=== PATIENT | male | born 1965 | race American Indian/Alaskan Native ===

== ENCOUNTER 2018-12-28 07:55 | Emergency (ER) | payer OTHER ==
[2018-12-28 08:04] VITALS: BMI 26.4
--- NOTE | 2018-12-28 08:32 | ED PDOC ---
Arrival/HPI - General Historian: Patient EM Caveat: Altered Mental Status - History of Present Illness Narrative History of Present Illness (Text): 12/28/18 08:20 CC: AMS brought in by EMS sleeping on bench HPI: 53 yo male w/ unknown PMH BIBA to ED for AMS after found sleeping on bench. Patient AAOx 1 at best. Unknown baseline mental status. As per EMS, patient responds incoherently to most questioning however if continuously prompted patient is able to answer questions at times. States he was in [facility] ED where they told him he would need his right foot amputated. This frightened the patient so he left the hospital. Limited ROS 2/2 patient AMS. Spoke with ED physician, Dr. Perkins, at length who informed me of patient's psych history of caridad izophrenia. Has had multiple admissions at [facility] for AMS. Was placed in LTC facility at one point due to being unable to take care of himself. Was seen at [facility] on 12/25 and discharged, no vascular issues at that time were appreciated. Dr. Perkins did mention that he noted a stage 3 foot ulcer that was superficial. Time/Duration: 4-6 hours Symptom Onset: Gradual Symptom Course: Unchanged <Jet Mondragon - Last Filed: 12/28/18 13:25> <Judy Sherwood - Last Filed: 12/28/18 13:37> - General Chief Complaint: Wound Check Time Seen by Provider: 12/28/18 07:58 Past Medical History - Provider Review Nursing Documentation Reviewed: Yes <Jet Mondragon - Last Filed: 12/28/18 13:25> Family/Social History - Physician Review Nursing Documentation Reviewed: Yes Family/Social History: Unknown Family HX <Jet Mondragon - Last Filed: 12/28/18 13:25> Allergies/Home Meds <Jet Mondragon - Last Filed: 12/28/18 13:25> <Judy Sherwood - Last Filed: 12/28/18 13:37> Allergies/Adverse Reactions: Allergies No Known Allergies Allergy (Verified 12/28/18 08:04) Home Medications: Home Meds Medication Instructions Recorded Confirmed Haloperidol [Haldol] 5 mg PO PRN PRN 12/28/18 12/28/18 Review of Systems - Review of Systems Systems not reviewed;Unavailable: Altered Mental Status <Jet Mondragon - Last Filed: 12/28/18 13:25> Physical Exam - Systems Exam Head: Present: Atraumatic, Normocephalic Pupils: Present: PERRL. No: Sluggish, Non-Reactive Extroacular Muscles: Present: EOMI. No: Gaze Palsy Conjunctiva: Present: Normal, Other (left eye blindness) Mouth: Present: Dry. No: Moist Mucous Membranes Neck: Present: Normal Range of Motion. No: Meningeal Signs, JVD Respiratory/Chest: Present: Clear to Auscultation, Good Air Exchange. No: Respiratory Distress, Accessory Muscle Use Cardiovascular: Present: Normal S1, S2, Bradycardic Abdomen: Present: Normal Bowel Sounds. No: Tenderness, Distention, Peritoneal Signs Upper Extremity: Present: Normal Inspection, Other (dry scaly skin ). No: Cyanosis, Edema Lower Extremity: Present: Normal Inspection, NORMAL PULSES, Normal ROM, Other (2 cm by 2 cm ulcer superficial on right lower extremity above medial malleoulus, dry scaling cracked skin). No: Edema, CALF TENDERNESS, Cyanosis Neurological: Present: GCS=15, CN II-XII Intact, Speech Normal Skin: Present: Warm, Dry, Normal Color, Other (dry skin in upper and lower extremities). No: Rashes Psychiatric: Present: Alert, Oriented x 3. No: Normal Insight, Normal Concentration <Jet Mondragon - Last Filed: 12/28/18 13:25> Vital Signs Temp Pulse Resp BP Pulse Ox 12/28/18 11:18 45 L 18 114/50 L 99 12/28/18 10:19 67 18 106/49 L 98 12/28/18 08:04 97.9 F 48 L 18 113/59 L 98 <Judy Sherwood - Last Filed: 12/28/18 13:37> Medical Decision Making ED Course and Treatment: 12/28/18 08:33 Impression 53 yo male w/ unknown PMH BIBA to ED for AMS after found sleeping on bench. Plan -CBC -CMP -PT/PTT -VBG -CT head -UDS -U/A -UCX -Blood cx -CXR Prior Visits No prior visits at this location. Spoke with Dr. Perkins at length at [facility] who said patient has been admitted for AMS. Was placed in LTAC facility but no longer there. Progress Notes pending labs 12/28/18 10:20 lab work reviewed and consistent with previous labs from [facility] as per discussion with Dr. Perkins Call made to SW for possible housing options Patient as per Dr. Perkins has been admitted to [facility] multiple times for AMS likely baseline mental status, was previously in LTAC facility, CT head negative for acute pathology 12/28/18 10:55 SW returned call. SW will come discuss detention options. 12/28/18 13:25 SW organized transfer for patient through logistics and will be transferred to a detention in [place] Re-evaluation Time: 10:23 Reassessment Condition: Re-examined, Unchanged - Lab Interpretations Lab Results: 12/28/18 08:18 12/28/18 08:50 Lab Results 12/28/18 09:00: pO2 29 L, VBG pH 7.38, VBG pCO2 54.0, VBG HCO3 31.9 H, VBG Total CO2 33.6 H, VBG O2 Sat (Calc) 52.9, VBG Base Excess 6.3 H, VBG Potassium 4.2, Glucose 106, Lactate 1.0, FiO2 21.0, Sodium 141.0, Chloride 109.0 H, Venous Blood Potassium 4.2 12/28/18 08:50: Sodium 139, Potassium 4.3, Chloride 107, Carbon Dioxide 27, Anion Gap 9 L, BUN 16, Creatinine 0.7 L, Est GFR ( Amer) > 60, Est GFR (Non-Af Amer) > 60, Random Glucose 109, Calcium 8.4, Total Bilirubin 0.6, AST 31, ALT 37, Alkaline Phosphatase 64, Total Protein 7.0, Albumin 3.2, Globulin 3.8, Albumin/Globulin Ratio 0.8 L 12/28/18 08:23: POC Glucose (mg/dL) 105 12/28/18 08:19: PT 15.0 H, INR 1.33, APTT 32.1 12/28/18 08:18: WBC 3.0 L, RBC 2.55 L, Hgb 8.6 L, Hct 28.1 L, MCV 110.2 H, MCH 33.7, MCHC 30.6 L, RDW 15.7 H, Plt Count 217, MPV 10.0, Neut % (Auto) 48.7 L, Lymph % (Auto) 41.3 H, [place] % (Auto) 7.7 H, Eos % (Auto) 2.0, Baso % (Auto) 0.3, Lymph # (Auto) 1.2, [place] # (Auto) 0.2, Eos # (Auto) 0.1, Baso # (Auto) 0.01, Absolute Neuts (auto) 1.45 I have reviewed the lab results: Yes Interpretation: No sign. chg./baseline - RAD Interpretation Radiology Orders: Radiology Results Chest X-Ray 12/28/18 08:19 IMPRESSION: Cardiomegaly is not excluded. No acute infiltrate. No pulmonary vascular congestion. Head CT 12/28/18 08:19 IMPRESSION: Minimal diffuse cerebral atrophy concordant with patient's stated age. No definite acute intracranial findings. <Jet Mondragon - Last Filed: 12/28/18 13:25> ED Course and Treatment: 12/28/18 13:35 Patient seen by resident and then evaluated by me. Presented after being found on [place] bench by [place] PD today. Small clean wound to L lower leg. Reports chronic hx of this. Wound clean and dressed. CT head WNL. Cxray negative. No urinary complaints. Labs at baseline (hx of anemia and AMS secondary to schizophrenia per prior hospital). Has no SI or HI. Reports that he is homeless and requesting detention. SW organized transfer to [facility]. 12/28/18 13:36 - Lab Interpretations Lab Results: pO2 29 mm/Hg (30-55) L 12/28/18 09:00 VBG pH 7.38 (7.32-7.43) 12/28/18 09:00 VBG pCO2 54.0 (40-60) 12/28/18 09:00 VBG HCO3 31.9 mmol/l (21-28) H 12/28/18 09:00 VBG Total CO2 33.6 mmol.L (22-28) H 12/28/18 09:00 VBG O2 Sat (Calc) 52.9 % (40-65) 12/28/18 09:00 VBG Base Excess 6.3 mmol/L (0.0-2.0) H 12/28/18 09:00 VBG Potassium 4.2 mmol/L (3.6-5.2) 12/28/18 09:00 Sodium 141.0 mmol/L (132-148) 12/28/18 09:00 Chloride 109.0 mmol/L (98-107) H 12/28/18 09:00 Glucose 106 mg/dl (75-110) 12/28/18 09:00 Lactate 1.0 mmol/L (0.7-2.1) 12/28/18 09:00 FiO2 21.0 % 12/28/18 09:00 PT 15.0 SECONDS (9.4-12.5) H 12/28/18 08:19 INR 1.33 12/28/18 08:19 APTT 32.1 Seconds (26.9-38.3) 12/28/18 08:19 Total Bilirubin 0.6 mg/dL (0.2-1.3) 12/28/18 08:50 AST 31 U/L (17-59) 12/28/18 08:50 ALT 37 U/L (7-56) 12/28/18 08:50 Alkaline Phosphatase 64 U/L (38-126) 12/28/18 08:50 Total Protein 7.0 g/dL (5.8-8.3) 12/28/18 08:50 Albumin 3.2 g/dL (3.0-4.8) 12/28/18 08:50 Globulin 3.8 gm/dL 12/28/18 08:50 Albumin/Globulin Ratio 0.8 (1.1-1.8) L 12/28/18 08:50 - RAD Interpretation Radiology Orders: 12/28/18 08:19 HEAD W/O CONTRAST [CT] Stat CHEST PORTABLE [RAD] Stat - Medication Orders Current Medication Orders: Discontinued Medications Bacitracin (Bacitracin) 2 ea TOP STAT STA Stop: 12/28/18 10:13 Last Admin: 12/28/18 10:16 Dose: 2 ea <Judy Sherwood - Last Filed: 12/28/18 13:37> Disposition/Present on Arrival - Present on Arrival Any Indicators Present on Arrival: No History of DVT/PE: No History of Uncontrolled Diabetes: No Urinary Catheter: No History of Decub. Ulcer: No - Disposition Have Diagnosis and Disposition been Completed?: Yes Disposition Time: 13:26 Patient Plan: Discharge <Jet Mondragon - Last Filed: 12/28/18 13:25> - Present on Arrival Any Indicators Present on Arrival: No - Disposition Have Diagnosis and Disposition been Completed?: Yes <Judy Sherwood - Last Filed: 12/28/18 13:37> - Disposition Diagnosis: Venous stasis ulcer, Homeless Condition: FAIR Additional Instructions: 1. Please followup at [facility] for continued care of medical problems 2. Please return to hospital if symptoms worsen Referrals: [facility] [place] [facility] [place]] - Follow up with primary Forms: [facility] (Togolese)
[2018-12-28 08:56] VITALS: RESP 18; TEMP 97.9
[2018-12-28 09:04] LABS: VENOUS BLOOD GAS BASE EXCESS 6.3 mmol/L (0.0-2.0); VENOUS BLOOD GAS PO2 29 mm/Hg (30-55); VENOUS BLOOD PH 7.38 (7.32-7.43)
[2018-12-28 09:20] LABS: BASO # 0.01 K/mm3 (0.0-2.0); BASO % 0.3 % (0.0-3.0); EOS # 0.1 (0.0-0.7); HEMOGLOBIN 8.6 g/dL (14.0-18.0); LYMPH # 1.2 (1.2-3.4); LYMPH % 41.3 % (22.0-35.0); MEAN CELL VOLUME 110.2 fl (80.0-105.0); MEAN CORPUSCULAR HEMOGLOBIN 33.7 pg (25.0-35.0); MEAN CORPUSCULAR HGB CONC 30.6 g/dl (31.0-37.0); MONO # 0.2 (0.1-0.6); MONO % 7.7 % (1.0-6.0); RBC 2.55 10^6/uL (3.5-6.1); RED CELL DISTRIBUTION WIDTH 15.7 % (11.5-14.5)
--- NOTE | 2018-12-28 09:32 | CT ---
Date of service: 12/28/2018 PROCEDURE: CT HEAD WITHOUT CONTRAST. HISTORY: altered mental status COMPARISON: None available. TECHNIQUE: Axial computed tomography images were obtained through the head/brain without intravenous contrast. Radiation dose: Total exam DLP = 1001.24 mGy-cm. This CT exam was performed using one or more of the following dose reduction techniques: Automated exposure control, adjustment of the mA and/or kV according to patient size, and/or use of iterative reconstruction technique. FINDINGS: HEMORRHAGE: No intracranial hemorrhage. BRAIN: The salazar-white matter differentiation is well preserved. There is no mass effect or definitive edema pattern appreciated including the cortex. There is minimal, proportional expansion of the ventriculosulcal and cisternal spaces in a pattern most compatible with diffuse cerebral atrophy. No suspicious extra-axial fluid collection is identified in the midline brain anatomy appears grossly nonfocal as imaged. VENTRICLES: Unremarkable. No hydrocephalus. CALVARIUM: Unremarkable. PARANASAL SINUSES: Unremarkable as visualized. No significant inflammatory changes. MASTOID AIR CELLS: Unremarkable as visualized. No inflammatory changes. OTHER FINDINGS: None. IMPRESSION: Minimal diffuse cerebral atrophy concordant with patient's stated age. No definite acute intracranial findings.
--- NOTE | 2018-12-28 09:37 | RAD ---
Date of service: 12/28/2018 HISTORY: cough COMPARISON: No prior. TECHNIQUE: 1 view obtained. FINDINGS: LUNGS: No active pulmonary disease. PLEURA: No significant pleural effusion identified, no pneumothorax apparent. CARDIOVASCULAR: No aortic atherosclerotic calcification present. Cardiomegaly is not excluded. No pulmonary vascular congestion. OSSEOUS STRUCTURES: No significant abnormalities. VISUALIZED UPPER ABDOMEN: Normal. OTHER FINDINGS: None. IMPRESSION: Cardiomegaly is not excluded. No acute infiltrate. No pulmonary vascular congestion.
[2018-12-28 09:50] LABS: INR 1.33; PARTIAL THROMBOPLASTIN TIME 32.1 Seconds (26.9-38.3)
[2018-12-28 09:57] LABS: ALB/GLOB RATIO 0.8 (1.1-1.8); ALBUMIN 3.2 g/dL (3.0-4.8); ALT/SGPT 37 U/L (7-56); AST/SGOT 31 U/L (17-59); BLOOD UREA NITROGEN 16 mg/dL (7-21); CALCIUM 8.4 mg/dL (8.4-10.5); GFR NON-AFRICAN AMERICAN > 60
[2018-12-28] MEDS ORDERED: Bacitracin Ointment 30 GM TUBE TOP STA (10:06)
[2018-12-28] MEDS: Bacitracin 500 Units/gm Oint Foilpak UD TOP STA (10:16)
[2018-12-28 13:49] VITALS: BP 96/37; PULSE 53; O2SAT 100
--- NOTE | 2018-12-28 17:45 | CARD ---
APPROVED REPORT Date of service: 12/28/2018 EKG Measurement Heart [id number] <Conclusion> Marked sinus bradycardia Abnormal ECG
== END 2018-12-28 13:00 | disposition home or self-care (01) ==
LOC: ED 07:55
DX: L97.519 Non-pressure chronic ulcer of other part of right foot with unspecified severity (principal); Z59.0 Homelessness; F20.9 Schizophrenia, unspecified